=== PATIENT | male | born 1995 | race Caucasian/White ===

== ENCOUNTER 2016-07-16 07:32 | Emergency (ER) | payer BC ==
[2016-07-16 07:41] VITALS: BP 130/69
[2016-07-16] MEDS ORDERED: Ibuprofen TAB* 600 MG PO ONE (07:45)
--- NOTE | 2016-07-16 08:09 | UC ---
Respiratory Complaint HPI - HPI Summary HPI Summary: 21 yo male with <48 hour hx of f/c, PERAZA, runny nose, productive cough and dyspnea No n/v/d no CP - History of Current Complaint Chief Complaint: UCGeneralIllness Stated Complaint: HEADACHE/EARS/FEVER/CONGESTION Time Seen by Provider: 07/16/16 07:52 Hx Obtained From: Patient Onset/Duration: Sudden Onset, Gradual Onset Timing: Constant Pain Intensity: 7 Pain Scale Used: 0-10 Numeric Character: Cough: Productive Aggravating Factors: Deep Breaths Alleviating Factors: Nothing Associated Signs And Symptoms: Positive: Fever, Chills, Nasal Congestion - Allergies/Home Medications Allergies/Adverse Reactions: Allergies Allergy/AdvReac Type Severity Reaction Status Date / Time No Known Allergies Allergy Verified 07/16/16 07:40 PMH/Surg Hx/FS Hx/Imm Hx Previously Healthy: Yes Respiratory History Of: Reports: Bronchitis - x1 - Surgical History Surgical History: None - Family History Known Family History: Negative: Cardiac Disease, Hypertension, Diabetes - Social History Alcohol Use: Occasionally Substance Use Type: None Smoking Status (MU): Never Smoked Tobacco - Immunization History Most Recent Influenza Vaccination: none Review of Systems Constitutional: Fever, Chills Skin: Negative Eyes: Negative ENT: Nasal Discharge Respiratory: Shortness Of Breath, Cough Cardiovascular: Negative Gastrointestinal: Negative Genitourinary: Negative Motor: Negative Neurovascular: Negative Musculoskeletal: Myalgia - severe Neurological: Headache Psychological: Negative All Other Systems Reviewed And Are Negative: Yes Physical Exam Triage Information Reviewed: Yes Appearance: No Pain Distress, Well-Nourished, Ill-Appearing - no septic appearing, Thin Vital Signs: Initial Vital Signs Temp 102.2 F 07/16/16 07:37 Pulse 110 07/16/16 07:37 Resp 18 07/16/16 07:37 BP 130/69 07/16/16 07:37 Pulse Ox 97 07/16/16 07:37 Vital Signs Reviewed: Yes Eyes: Positive: Conjunctiva Clear ENT: Positive: Hearing grossly normal, Nasal congestion, Nasal drainage, TMs normal, Other: - no sinus tenderness. Negative: Tonsillar swelling, Tonsillar exudate, Trismus, Muffled/hoarse voice Neck: Positive: Supple, Nontender, No Lymphadenopathy Respiratory: Positive: Lungs clear, Normal breath sounds, No respiratory distress, No accessory muscle use Cardiovascular: Positive: RRR, No Murmur, Tachycardia Abdomen Description: Positive: Nontender, No Organomegaly, Soft Bowel Sounds: Positive: Present Musculoskeletal: Positive: ROM Intact, No Edema Neurological: Positive: Alert Psychological Exam: Normal Skin Exam: Normal UC Diagnostic Evaluation - Laboratory O2 Sat by Pulse Oximetry: 97 - normal/not hypoxic - Radiology Xray Interpretation: No Acute Changes Radiology Interpretation Completed By: Radiologist Respiratory Course/Dx - Differential Dx/Diagnosis Provider Diagnoses: influenza Discharge - Discharge Plan Condition: Stable Disposition: HOME Prescriptions: Benzonatate CAP* [Tessalon CAP*] 100 - 200 mg PO TID PRN #28 cap PRN Reason: Cough Ibuprofen TAB* [Motrin TAB*] 600 mg PO QID PRN #40 tab PRN Reason: Pain Oseltamivir CAP* [Tamiflu CAP*] 75 mg PO BID #10 cap Patient Education Materials: Influenza (ED) Forms: *School Release Referrals: Non Staff,Doctor [Primary Care Provider] - Additional Instructions: rest fluids tylenol or ibuprofen for fever/pain recheck for new or worsening symptoms recheck if not fever free in 3-4 days
--- NOTE | 2016-07-16 08:21 | RAD ---
INDICATION: Fever. Chills. Cough. COMPARISON: None TECHNIQUE: PA and lateral dual-energy views were obtained. FINDINGS: Bones/Soft Tissues: There are no acute bony findings. Cardiomediastinal: The cardiomediastinal silhouette is normal. Lungs: There are no infiltrates. Pleura: There are no pleural effusions. Other: None IMPRESSION: NORMAL CHEST.
== END 2016-07-16 08:58 | disposition home or self-care (01) ==
LOC: UCCORT 07:32
DX: J11.1 Influenza due to unidentified influenza virus with other respiratory manifestations (principal)
CPT/HCPCS: 71020; 99212; A9270-GY; G0463

== ENCOUNTER 2016-07-29 13:10 | Emergency (ER) | payer BC ==
[2016-07-29 13:38] VITALS: BP 136/58
--- NOTE | 2016-07-29 14:11 | UC ---
Respiratory Complaint HPI - HPI Summary HPI Summary: COUGH X 3 DAYS , HAD INFLUENZA 2 WEEKS AGO , HAS IMPROVED AFTER ONE WEEK, SOUGH STARTED 3 DAYS AGO , CHEST CONGESTION, FEVER, CHILLS, FATIGUE, CONCERN ABOUT PNEUMONIA - History of Current Complaint Chief Complaint: UCRespiratory Stated Complaint: COUGH Time Seen by Provider: 07/29/16 13:41 Hx Obtained From: Patient Onset/Duration: Gradual Onset Timing: Constant Severity Initially: Moderate Severity Currently: Moderate Character: Cough: Productive - YELLOW Aggravating Factors: Exertion, Deep Breaths Associated Signs And Symptoms: Positive: Dyspnea, Fever, Chills, URI, Nasal Congestion - Risk Factors Cardiac Risk Factors: Negative - Allergies/Home Medications Allergies/Adverse Reactions: Allergies Allergy/AdvReac Type Severity Reaction Status Date / Time No Known Allergies Allergy Verified 07/29/16 13:38 Home Medications: Home Medications Dextromethorphan-Guaifenesin [Mucinex Fast-Max Dm Max 20-400 mg/20Ml] 1 tab PO Q12H PRN 07/29/16 [History Confirmed 07/29/16] PMH/Surg Hx/FS Hx/Imm Hx Respiratory History Of: Reports: Bronchitis - x1 - Surgical History Surgical History: None - Family History Known Family History: Negative: Cardiac Disease, Hypertension, Diabetes - Social History Alcohol Use: Occasionally Substance Use Type: None Smoking Status (MU): Never Smoked Tobacco - Immunization History Most Recent Influenza Vaccination: none Review of Systems Constitutional: Fever, Chills, Fatigue Skin: Negative Eyes: Negative ENT: Ear Ache, Nasal Discharge Respiratory: Cough Cardiovascular: Negative Gastrointestinal: Negative Genitourinary: Negative All Other Systems Reviewed And Are Negative: Yes Physical Exam Triage Information Reviewed: Yes Appearance: Well-Appearing, No Pain Distress, Well-Nourished Vital Signs: Initial Vital Signs Temp 98.8 F 07/29/16 13:32 Pulse 69 07/29/16 13:32 Resp 18 07/29/16 13:32 BP 136/58 07/29/16 13:32 Pulse Ox 100 07/29/16 13:32 Vital Signs Reviewed: Yes Eyes: Positive: Conjunctiva Clear ENT: Positive: Normal ENT inspection, Hearing grossly normal, Pharynx normal Neck: Positive: Supple, Nontender, No Lymphadenopathy Respiratory: Positive: Chest non-tender, Lungs clear, Normal breath sounds Cardiovascular: Positive: RRR, No Murmur, Pulses Normal Abdominal Exam: Normal Skin Exam: Normal UC Diagnostic Evaluation - Laboratory O2 Sat by Pulse Oximetry: 100 Respiratory Course/Dx - Differential Dx/Diagnosis Provider Diagnoses: BRONCHITIS Discharge - Discharge Plan Condition: Stable Disposition: HOME Prescriptions: Azithromycin TAB* [Zithromax TAB (Z-WIN) 250 mg #6 tabs] 2 tab PO .TODAY, THEN 1 DAILY #1 win Patient Education Materials: Acute Bronchitis (ED) Referrals: Non Staff,Doctor [Primary Care Provider] - If Needed
--- NOTE | 2016-07-29 14:20 | RAD ---
INDICATION: Cough and fever COMPARISON: Similar chest x-ray dated July 16, 2016 TECHNIQUE: PA and lateral views of the chest were obtained. FINDINGS: The heart and mediastinum are normal in size and contour. Stable subcentimeter densities overlying the bilateral isaiah could represent calcified granulomas. Otherwise the lungs are grossly clear. There is no evidence of large pleural effusion. Visualized bones are normal for the patient's age. There is no radiographic evidence of free air beneath the diaphragm IMPRESSION: No radiographic evidence of acute cardiopulmonary disease.
== END 2016-07-29 14:12 | disposition home or self-care (01) ==
LOC: UCCORT 13:10
DX: J40 Bronchitis, not specified as acute or chronic (principal)
CPT/HCPCS: 71020; 99212; G0463

== ENCOUNTER 2017-03-18 11:33 | Emergency (ER) | payer BC ==
[2017-03-18 11:54] VITALS: BP 112/59
--- NOTE | 2017-03-18 11:54 | UC ---
HPI Febrile Illness - HPI Summary HPI Summary: Fever, aches, congestion, sore throat for about 24 hours. NO severe headache or confusion. - History of Current Complaint Time Seen by Provider: 03/18/17 11:38 Hx Obtained From: Patient Onset/Duration: Started Hours Ago Timing: Constant, Lasting Hours Initial Severity: Moderate Current Severity: Moderate Aggravating Factors: Nothing Alleviating Factors: Nothing Associated Signs and Symptoms: Chills, Myalgia - Allergy/Home Medications Allergies/Adverse Reactions: Allergies Allergy/AdvReac Type Severity Reaction Status Date / Time No Known Allergies Allergy Verified 03/18/17 11:51 Home Medications: Home Medications NK [No Home Medications Reported] 03/18/17 [History Confirmed 03/18/17] PMH/Surg Hx/FS Hx/Imm Hx Previously Healthy: Yes - Surgical History Surgical History: None - Family History Known Family History: Negative: Cardiac Disease, Hypertension, Diabetes - Social History Alcohol Use: Occasionally Substance Use Type: None Smoking Status (MU): Never Smoked Tobacco - Immunization History Most Recent Influenza Vaccination: none Review of Systems Constitutional: Fever ENT: Sore Throat, Sinus Congestion All Other Systems Reviewed And Are Negative: Yes Physical Exam Triage Information Reviewed: Yes Appearance: Well-Appearing, No Pain Distress, Well-Nourished Vital Signs Reviewed: Yes Eye Exam: Normal Eyes: Positive: Conjunctiva Clear ENT: Positive: Pharynx normal, Pharyngeal erythema, Nasal congestion, TMs normal. Negative: Tonsillar swelling, Tonsillar exudate, Trismus Neck exam: Normal Neck: Positive: Supple, Nontender, No Lymphadenopathy Respiratory Exam: Normal Respiratory: Positive: Chest non-tender, Lungs clear, Normal breath sounds, No respiratory distress, No accessory muscle use. Negative: Respiratory distress, Decreased breath sounds, Accessory muscle use, Crackles, Rhonchi, Stridor, Wheezing Cardiovascular Exam: Normal Cardiovascular: Positive: RRR, No Murmur, Pulses Normal, Brisk Capillary Refill Abdominal Exam: Normal Abdomen Description: Positive: Nontender, No Organomegaly, Soft Musculoskeletal Exam: Normal Musculoskeletal: Positive: Strength Intact, ROM Intact, No Edema Neurological Exam: Normal Neurological: Positive: Alert, Muscle Tone Normal. Negative: Fatigued Psychological Exam: Normal Skin Exam: Normal Skin: Negative: rashes Course/Dx - Course Course Of Treatment: viral illness. supportive care described. - Diagnoses Clinic Provider Diagnoses: viral illness. Discharge - Discharge Plan Condition: Good Disposition: HOME Patient Education Materials: Upper Respiratory Infection (ED) Referrals: Non Staff,Doctor [Primary Care Provider] - Additional Instructions: follow up with student health if needed.
== END 2017-03-18 12:40 | disposition home or self-care (01) ==
LOC: UCCORT 11:33
DX: B34.9 Viral infection, unspecified (principal)
CPT/HCPCS: 87502; 99211; G0463

== ENCOUNTER 2017-07-25 08:49 | Emergency (ER) | payer BC ==
[2017-07-25 10:01] VITALS: BP 140/56
--- NOTE | 2017-07-25 10:20 | UC ---
Throat Pain/Nasal Anuj HPI - HPI Summary HPI Summary: c/o npc, nasal congestion, chills at night, earache - bilaterally for 4-5 days now using sinus congestion med otc with little relief - History of Current Complaint Chief Complaint: UCGeneralIllness Stated Complaint: FEVER,CHILLS,SORE THROAT,SINUSES Time Seen by Provider: 07/25/17 10:11 Hx Obtained From: Patient Onset/Duration: Lasting Days Severity: Moderate Pain Intensity: 5 Cough: Nonproductive Associated Signs & Symptoms: Positive: Sinus Discomfort - Epiglottits Risk Factors Epiglottis Risk Factors: Negative - Allergies/Home Medications Allergies/Adverse Reactions: Allergies Allergy/AdvReac Type Severity Reaction Status Date / Time No Known Allergies Allergy Verified 07/25/17 10:00 PMH/Surg Hx/FS Hx/Imm Hx Previously Healthy: Yes - Surgical History Surgical History: None - Family History Known Family History: Negative: Cardiac Disease, Hypertension, Diabetes - Social History Alcohol Use: Occasionally Substance Use Type: None Smoking Status (MU): Never Smoked Tobacco - Immunization History Most Recent Influenza Vaccination: none Review of Systems Constitutional: Chills Skin: Negative Eyes: Negative ENT: Sore Throat, Ear Ache, Nasal Discharge, Sinus Congestion Respiratory: Cough - nonprod Cardiovascular: Negative Gastrointestinal: Negative Genitourinary: Negative Is Patient Immunocompromised?: No All Other Systems Reviewed And Are Negative: Yes Physical Exam Triage Information Reviewed: Yes Appearance: Ill-Appearing Vital Signs: Initial Vital Signs Temp 98.5 F 07/25/17 09:57 Pulse 68 07/25/17 09:57 Resp 18 07/25/17 09:57 BP 140/56 07/25/17 09:57 Pulse Ox 100 07/25/17 09:57 Vital Signs Reviewed: Yes Eye Exam: Normal ENT Exam: Normal ENT: Positive: Pharyngeal erythema, Nasal congestion, TM bulging - bilaterally Neck exam: Normal Respiratory Exam: Normal Cardiovascular Exam: Normal Abdominal Exam: Normal Bowel Sounds: Positive: Present Musculoskeletal Exam: Normal Neurological Exam: Normal Psychological Exam: Normal Skin Exam: Normal Throat Pain/Nasal Course/Dx - Differential Dx/Diagnosis Differential Diagnosis/HQI/PQRI: Pharyngitis Provider Diagnoses: sinusitis Discharge - Discharge Plan Condition: Good Disposition: HOME Prescriptions: Azithromycin TAB* [Zithromax TAB (Z-WIN) 250 mg #6 tabs] 2 tab PO .TODAY, THEN 1 DAILY 5 Days #1 win Patient Education Materials: Sinusitis (ED) Referrals: [facility] [Provider Group]
== END 2017-07-25 10:33 | disposition home or self-care (01) ==
LOC: UCCORT 08:49
DX: J32.9 Chronic sinusitis, unspecified (principal)
CPT/HCPCS: 99212; G0463

== ENCOUNTER 2017-08-05 10:06 | Emergency (ER) | payer BC ==
[2017-08-05 12:04] VITALS: BP 116/64
--- NOTE | 2017-08-05 13:19 | UC ---
FLU HPI - HPI Summary HPI Summary: Fever and headache starting yesterday. He also has chills and aches. He was ill with sinus infection which resolved with z pack and he was symptom free for 4 days. The cough he originally had never resolved and it persists. It is productive. - History of Current Complaint Chief Complaint: UCRespiratory Stated Complaint: FEVER,ACHY,PERAZA Time Seen by Provider: 08/05/17 12:55 Hx Obtained From: Patient Onset/Duration: Gradual Onset, Lasting Days - cough has been lasting days. Severity Currently: Moderate Severity Initially: Moderate Pain Intensity: 3 Associated Signs & Symptoms: Positive: Fever, Cough, Headache. Negative: Vomiting, Diarrhea - Allergy/Home Medications Allergies/Adverse Reactions: Allergies Allergy/AdvReac Type Severity Reaction Status Date / Time No Known Allergies Allergy Verified 08/05/17 11:58 Home Medications: Home Medications Diphenhydram/PE/Dm/Acetamin/GG [Daytime-Cold Zvvvlasur-Tlm-Dtt] 2 tab PO BID PRN 08/05/17 [History Confirmed 08/05/17] PMH/Surg Hx/FS Hx/Imm Hx Previously Healthy: No - recent sinus infection. - Surgical History Surgical History: None - Family History Known Family History: Negative: Cardiac Disease, Hypertension, Diabetes - Social History Occupation: Student Alcohol Use: Occasionally Substance Use Type: None Smoking Status (MU): Never Smoked Tobacco - Immunization History Most Recent Influenza Vaccination: none Review of Systems Constitutional: Fever Respiratory: Cough Gastrointestinal: Negative Musculoskeletal: Myalgia All Other Systems Reviewed And Are Negative: Yes Physical Exam Triage Information Reviewed: Yes Appearance: Well-Appearing - alert and interative. Sitting up. Non toxic., No Pain Distress, Well-Nourished Vital Signs: Initial Vital Signs Temp 98.9 F 08/05/17 11:59 Pulse 67 08/05/17 11:59 Resp 16 08/05/17 11:59 BP 116/64 08/05/17 11:59 Pulse Ox 99 08/05/17 11:59 Vital Signs Reviewed: Yes Eyes: Positive: Conjunctiva Clear ENT: Positive: Pharynx normal, Nasal congestion, TMs normal, Uvula midline. Negative: Pharyngeal erythema, Nasal drainage, TM bulging, TM dull, TM red, Tonsillar swelling, Tonsillar exudate, Trismus, Muffled voice, Sinus tenderness Neck: Positive: Supple, Nontender, No Lymphadenopathy Respiratory: Positive: Lungs clear, Normal breath sounds, No respiratory distress, No accessory muscle use. Negative: Respiratory distress, Decreased breath sounds, Accessory muscle use, Crackles, Rhonchi, Stridor, Wheezing Cardiovascular: Positive: RRR, No Murmur, Pulses Normal, Brisk Capillary Refill Abdomen Description: Positive: Nontender, No Organomegaly, Soft. Negative: CVA Tenderness (R), CVA Tenderness (L), Distended, Guarding Bowel Sounds: Positive: Present Musculoskeletal: Positive: Strength Intact, ROM Intact, No Edema Neurological: Positive: Alert, Muscle Tone Normal. Negative: Fatigued Psychological: Positive: Age Appropriate Behavior Skin: Negative: rashes Flu Course/Dx - Course Course Of Treatment: No sinus tenderness, no signs of bacterial infection of the throat or ears. For completeness sake we got a chest x ray and there is no sign of pneumonia. He also was on z pack which would treat pneumonia as well. Currently he is non toxic and his presentation is most c/w influenza. Test was negative and he is low risk for complictions should this be a false negative. he will rest and supportive care was described. - Differential Dx/Diagnosis Differential Diagnosis/HQI/PQRI: Influenza, Pneumonia, RSV, Upper Respiratory Infection Provider Diagnoses: viral illness. Discharge - Discharge Plan Condition: Good Disposition: HOME Patient Education Materials: Influenza (ED) Forms: *School Release Referrals: Non Staff,Doctor [Primary Care Provider] - Additional Instructions: Return here for any worsening symptoms.
--- NOTE | 2017-08-05 13:35 | RAD ---
INDICATION: Productive cough and fever. COMPARISON: Comparison is made with a prior chest x-ray study from July 29, 2016. TECHNIQUE: Dual-energy PA and lateral views of the chest were obtained. FINDINGS: The heart is within normal limits in size. Mediastinal and hilar contours appear within normal limits. The lungs are clear. No pleural effusion is present. IMPRESSION: NO EVIDENCE FOR ACTIVE CARDIOPULMONARY DISEASE.
== END 2017-08-05 14:45 | disposition home or self-care (01) ==
LOC: UCCORT 10:06
DX: B34.9 Viral infection, unspecified (principal)
CPT/HCPCS: 71046; 87502; 99211; G0463

== ENCOUNTER 2018-03-07 15:20 | Emergency (ER) | payer BC ==
[2018-03-07 16:13] VITALS: BP 124/69
[2018-03-07] MEDS ORDERED: Ondansetron INJ* 2 MG/ML VIAL IV ONE (17:17)
[2018-03-07] MEDS ORDERED: NS 0.9% 1000 ML* 1,000 ML IV ONE (17:17)
--- NOTE | 2018-03-07 18:34 | UC ---
UC General HPI - HPI Summary HPI Summary: Pt presents with c/o PERAZA, nausea and vomiting that began this morning. Pt reports that he was drinking "large amounts of alcohol" last night. Pt is visitng friends who are graduate students at [employer]. Pt reports that he has only urinated once today at 0800 this morning. - History of Current Complaint Chief Complaint: UCGI Stated Complaint: VOMITING Time Seen by Provider: 03/07/18 17:09 Hx Obtained From: Patient Onset/Duration: Sudden Onset, Still Present Timing: Constant Onset Severity: Moderate Current Severity: Moderate Pain Intensity: 6 Associated Signs & Symptoms: Positive: Decreased Oral Intake, Headache, Nausea, Vomiting - Allergy/Home Medications Allergies/Adverse Reactions: Allergies Allergy/AdvReac Type Severity Reaction Status Date / Time No Known Allergies Allergy Verified 03/07/18 16:06 Home Medications: Home Medications NK [No Home Medications Reported] 03/07/18 [History Confirmed 03/07/18] PMH/Surg Hx/FS Hx/Imm Hx Previously Healthy: Yes - Surgical History Surgical History: None - Family History Known Family History: Negative: Cardiac Disease, Hypertension, Diabetes - Social History Occupation: Employed Full-time Lives: With Family Alcohol Use: Occasionally Substance Use Type: None Smoking Status (MU): Never Smoked Tobacco Have You Smoked in the Last Year: No - Immunization History Most Recent Influenza Vaccination: none Vaccination Up to Date: Yes Review of Systems Constitutional: Fatigue Skin: Negative Eyes: Negative ENT: Negative Respiratory: Negative Cardiovascular: Negative Gastrointestinal: Vomiting, Nausea Genitourinary: Negative Motor: Negative Neurovascular: Negative Musculoskeletal: Negative Neurological: Headache Psychological: Negative Is Patient Immunocompromised?: No All Other Systems Reviewed And Are Negative: Yes Physical Exam Triage Information Reviewed: Yes Appearance: Ill-Appearing Vital Signs: Initial Vital Signs Temp 98.2 F 03/07/18 16:07 Pulse 69 03/07/18 16:07 Resp 16 03/07/18 16:07 BP 124/69 03/07/18 16:07 Pulse Ox 100 03/07/18 16:07 Vital Signs Reviewed: Yes Eye Exam: Normal ENT Exam: Normal Dental Exam: Normal Neck exam: Normal Respiratory Exam: Normal Respiratory: Positive: No respiratory distress Musculoskeletal Exam: Normal Neurological Exam: Normal Psychological Exam: Normal Skin Exam: Normal Course/Dx - Differential Dx - Multi-Symptom Differential Diagnoses: Other - alcohol poisoning Provider Diagnoses: dehydration secondary to alcohol consumption. acute nausea and vomiting. "hangover" Discharge - Sign-Out/Discharge Documenting (check all that apply): Patient Departure All imaging exams completed and their final reports reviewed: No Studies - Discharge Plan Condition: Stable Disposition: HOME Patient Education Materials: Abuse of Alcohol (ED), Acute Nausea and Vomiting ( ED) Referrals: [facility] [Outside] - If Needed No Primary Care Phys,NOPCP [Primary Care Provider] - - Billing Disposition and Condition Condition: STABLE Disposition: Home
[2018-03-07] MEDS ORDERED: Ondansetron ODT TAB* 4 MG PO ONE (18:36)
== END 2018-03-07 19:02 | disposition home or self-care (01) ==
LOC: UCCORT 15:20
DX: E86.0 Dehydration (principal); R11.2 Nausea with vomiting, unspecified; F10.129 Alcohol abuse with intoxication, unspecified
CPT/HCPCS: 96361; 96374; 99211; A9270-GY; G0463; J2405